=== PATIENT | female | born 1970 ===

== ENCOUNTER 2021-09-29 18:52 | Emergency (ER) | payer OTHER ==
[~2021-09-29] VITALS: Ht 167.6 cm; Wt 5.0 kg
[2021-09-29] MEDS ORDERED: DUI500 PO (20:42)
== END 2021-09-29 20:48 | disposition home or self-care (01) ==
LOC: ER 18:52
DX: H61.20 Impacted cerumen, unspecified ear (principal); H66.90 Otitis media, unspecified, unspecified ear